=== PATIENT | female | born 1945 | race Caucasian/White ===

== ENCOUNTER 2017-03-14 10:18 | Day surgery (SDC) | payer OTHER ==
[2017-03-14] MEDS ORDERED: NS 1/2 1000 ML IV 500 ML IV ONE (10:30)
[2017-03-14] MEDS ORDERED: TETRACAINE 0.5% OPHTH 1 DOSE AFFEYE ONE ×4 (10:30→15:08)
[2017-03-14] MEDS ORDERED: VIGAMOX 0.5% OPHTH 1 DOSE AFFEYE ONE ×3 (10:31→10:41)
[2017-03-14] MEDS ORDERED: NS 500 ML IV 500 ML IV ONE (10:32)
[2017-03-14] MEDS ORDERED: PROLENSA OPHTH 1 DOSE AFFEYE ONE (10:42)
[2017-03-14] MEDS ORDERED: ALPHAGAN-P OPHTH 1 DOSE AFFEYE ONE (10:43)
[2017-03-14] MEDS ORDERED: CYCLOGYL 1% OPHTH 1 DOSE OP ONE ×3 (10:44→10:46)
[2017-03-14] MEDS ORDERED: MYDRIACIL OPHTH 1 DOSE AFFEYE ONE ×3 (10:44→10:46)
[2017-03-14] MEDS ORDERED: AK-DILATE 2.5% OPHTH 1 DOSE OP ONE ×3 (10:44→10:46)
[2017-03-14] MEDS ORDERED: BETADINE OPHTH SOLN 5% EACHEYE ONE (14:58)
[2017-03-14] MEDS ORDERED: XYLOCAINE-MPF 1% IJ ONE ×2 (14:59→15:08)
[2017-03-14] MEDS ORDERED: ADRENALINE CHL INJ IJ ONE ×2 (14:59→15:08)
[2017-03-14] MEDS ORDERED: DUOVISC IO ONE ×2 (15:00→15:08)
[2017-03-14] MEDS ORDERED: VIGAMOX 0.5% AFFEYE ONE ×3 (15:00→15:25)
[2017-03-14] MEDS ORDERED: BSS OPHTH (PLAIN) 500 ML with VANCOMYCIN HCL 500 MG VIAL 25 MG, ADRENALINE CHL INJ 1 MG IR ONE ×3 (15:00)
[2017-03-14] MEDS ORDERED: VERSED ONE (15:53)
[2017-03-14] MEDS ORDERED: DIPRIVAN VIAL ONE (15:53)
[2017-03-14 15:57] VITALS: BP 151/71
== END 2017-03-14 15:50 | disposition home or self-care (01) ==
LOC: SURG1 10:18
PROVIDERS: ATTEND Ophthalmology
PROC: 08DK3ZZ Extraction of Left Lens, Percutaneous Approach (ICD-10-PCS; principal; 2017-03-14 22:45)
PROC: 08RK3JZ Replacement of Left Lens with Synthetic Substitute, Percutaneous Approach (ICD-10-PCS; principal; 2017-03-14 22:45)
DX: H25.12 Age-related nuclear cataract, left eye (principal); H25.012 Cortical age-related cataract, left eye; H25.042 Posterior subcapsular polar age-related cataract, left eye
CPT/HCPCS: 99100; A4217; J0170; J2250; J3370; J3490

== ENCOUNTER 2022-05-19 12:03 | Observation (INO) ==
[2022-05-19] MEDS ORDERED: TUSSIONEX PENNKINETIC SUSP PO PRN (13:44)
[2022-05-19] MEDS ORDERED: REMDESIVIR 200 MG in NS 250 ML IV 250 ML IV ONE (13:48)
[2022-05-19 14:02] LABS: ABG ALLEN TEST POS; ABG BASE EXCESS 2.6 mmol/L (-2.0-2.0); ABG HCO3 26.2 mmol/L (22-26)
[2022-05-19 14:31] VITALS: BMI 26.3
[2022-05-19 14:34] LABS: BASOPHILS % (AUTO) 0.6 % (0.2-1.0); EOSINOPHILS # (AUTO) 0.1 x10^3/uL (0.0-0.2); EOSINOPHILS % (AUTO) 1.5 % (0.9-2.9); HEMATOCRIT 46.2 % (36.0-47.0); HEMOGLOBIN 14.9 g/dL (12.0-16.0); LYMPHOCYTES # (AUTO) 0.4 X10^3/uL (1.3-2.9); LYMPHOCYTES % (AUTO) 4.5 % (21.0-51.0); MEAN CORPUSCULAR HEMOGLOBIN 25.1 pg (27.0-34.0); MEAN CORPUSCULAR HGB CONC 32.2 g/dL (33.0-35.0); MONOCYTES # (AUTO) 0.4 x10^3/uL (0.3-0.8); MONOCYTES % (AUTO) 4.4 % (0.0-13.0); NEUTROPHILS # (AUTO) 7.9 x10^3/uL (2.2-4.8); RED BLOOD COUNT 5.93 X10^6/uL (3.5-5.4); RED CELL DISTRIBUTION WIDTH 20.4 % (11.6-16.5); WHITE BLOOD COUNT 8.9 X10^3/uL (3.6-10.0)
[2022-05-19] MEDS: XOPENEX 1.25 MG/3 ML NEBULE NEB SCH ×3 (14:36→20:55)
[2022-05-19] MEDS: PULMICORT NEB TX 0.5 MG NEB SCH ×2 (14:36→20:55)
[2022-05-19] MEDS ORDERED: NS 1/2 1,000 ML IV 1,000 ML IV ONE (14:39)
[2022-05-19] MEDS ORDERED: TYLENOL 325 MG TAB PO PRN (14:46)
[2022-05-19 14:48] LABS: ALANINE AMINOTRANSFERASE 21 Units/L (12-78); ALBUMIN 3.8 g/dL (3.4-5.0); ALKALINE PHOSPHATASE 86 Units/L (46-116); ASPARTATE AMINO TRANSFERASE 23 Units/L (15-37); BLOOD UREA NITROGEN 14 mg/dL (7-18); CALCIUM 8.2 mg/dL (8.5-10.1); CARBON DIOXIDE 28.6 mmol/L (21-32); CHLORIDE 101 mmol/L (98-107); CREATINE KINASE 72 Units/L (26-192); CREATININE 0.96 mg/dL (0.55-1.02); SODIUM 136 mmol/L (136-145); TOTAL PROTEIN 7.7 g/dL (6.4-8.2); eGFR NON BLACK RACES > 60 (>60)
[2022-05-19] MEDS ORDERED: TYLENOL 325 MG TAB PO ONE (14:50)
[2022-05-19] MEDS: LEVAQUIN PREMIX IV 500 MG 500 MG/100 ML BAG IV SCH (14:52)
[2022-05-19] MEDS: NS 1/2 1,000 ML IV 1,000 ML IV SCH (14:53)
[2022-05-19] MEDS: SOLU-Medrol 40 MG VIAL IVP SCH ×2 (14:53→21:00)
[2022-05-19] MEDS: ROBITUSSIN DM PO SCH ×3 (14:55→20:21)
[2022-05-19] MEDS: PROTONIX TAB 40 MG PO SCH ×2 (14:55→20:24)
[2022-05-19] MEDS: VSL#3 PO SCH (14:56)
[2022-05-19] MEDS: PEPCID TAB 20 MG PO SCH ×2 (14:56→20:25)
[2022-05-19 15:43] LABS: PLATELET MORPHOLOGY COMMENT NORMAL (NORMAL)
[2022-05-19 15:44] LABS: ANISOCYTOSIS 1+; HYPOCHROMASIA SLIGHT; MICROCYTOSIS SLIGHT
[2022-05-19] MEDS: LOVENOX INJ 30 MG SYR SC SCH (20:22)
[2022-05-19] MEDS: VITAMIN C PO SCH (20:24)
[2022-05-19] MEDS ORDERED: RESTORIL CAP 15 MG PO PRN (22:15)
--- NOTE | 2022-05-20 02:51 | RAD ---
PROCEDURE: Chest X-ray 1 View .HISTORY: Dyspnea and COVID-19.TECHNIQUE: AP view .COMPARISON: None .TECHNICAL QUALITY: Satisfactory .FINDINGS:Normal size heart .Mediastinum and hilar regions show no masses or lymphadenopathy .Normal central vascularity .No pulmonary consolidation, masses, pleural fluid, or pneumothorax. Probable chest wall shadow projected over left lung base laterally.No acute bony abnormality .IMPRESSION:No active cardiopulmonary disease .Electronically signed by: Sherman Jordan (May 20, 2022 02:49:43)
[2022-05-20] MEDS: NS 1/2 1,000 ML IV 1,000 ML IV SCH ×3 (04:05→18:59)
[2022-05-20] MEDS ORDERED: NS 1/2 1,000 ML IV 1,000 ML IV ONE (05:11)
[2022-05-20] MEDS: SOLU-Medrol 40 MG VIAL IVP SCH ×3 (05:24→21:00)
[2022-05-20 05:46] LABS: BASOPHILS % (AUTO) 0.1 % (0.2-1.0); HEMATOCRIT 42.8 % (36.0-47.0); HEMOGLOBIN 13.9 g/dL (12.0-16.0); LYMPHOCYTES # (AUTO) 0.5 X10^3/uL (1.3-2.9); LYMPHOCYTES % (AUTO) 5.2 % (21.0-51.0); MEAN CORPUSCULAR HEMOGLOBIN 25.3 pg (27.0-34.0); MEAN CORPUSCULAR HGB CONC 32.5 g/dL (33.0-35.0); MEAN CORPUSCULAR VOLUME 77.6 fL (80.0-100.0); MEAN PLATELET VOLUME 8.2 fL (7.4-11.0); MONOCYTES # (AUTO) 0.1 x10^3/uL (0.3-0.8); MONOCYTES % (AUTO) 0.8 % (0.0-13.0); NEUTROPHILS # (AUTO) 8.5 x10^3/uL (2.2-4.8); NEUTROPHILS % (AUTO) 93.9 % (42.0-75.0); RED BLOOD COUNT 5.52 X10^6/uL (3.5-5.4); RED CELL DISTRIBUTION WIDTH 20.5 % (11.6-16.5)
--- NOTE | 2022-05-20 05:56 | RAD ---
PROCEDURE: Chest X-ray 1 View .HISTORY: COVID PNEUMONIA .TECHNIQUE: AP portable done at 4:47 a.m..COMPARISON: 05/19/2022.TECHNICAL QUALITY: Satisfactory .FINDINGS:Normal size heart .Mediastinum and hilar regions show no masses or lymphadenopathy .Normal central vascularity .No pulmonary consolidation, masses, pleural fluid, or pneumothorax .No acute bony abnormality .IMPRESSION:No active cardiopulmonary disease .Electronically signed by: Sherman Jordan (May 20, 2022 05:55:16)
[2022-05-20 06:02] LABS: ALANINE AMINOTRANSFERASE 23 Units/L (12-78); ALBUMIN 3.4 g/dL (3.4-5.0); ALKALINE PHOSPHATASE 83 Units/L (46-116); ASPARTATE AMINO TRANSFERASE 23 Units/L (15-37); BLOOD UREA NITROGEN 13 mg/dL (7-18); CALCIUM 8.3 mg/dL (8.5-10.1); CARBON DIOXIDE 22.1 mmol/L (21-32); CHLORIDE 103 mmol/L (98-107); COR NA(FOR HYPERGLY) 141 mmol/L (136-145); CREATININE 1.03 mg/dL (0.55-1.02); SODIUM 139 mmol/L (136-145); TOTAL PROTEIN 7.3 g/dL (6.4-8.2); eGFR NON BLACK RACES 56 (>60)
[2022-05-20 06:06] LABS: ANISOCYTOSIS 1+; BAND NEUTROPHILS % 5 % (0-10); HYPOCHROMASIA SLIGHT; MICROCYTOSIS SLIGHT; PLATELET MORPHOLOGY COMMENT NORMAL (NORMAL)
[2022-05-20] MEDS ORDERED: LASIX IVP ONE (08:31)
[2022-05-20] MEDS: LEVAQUIN PREMIX IV 500 MG 500 MG/100 ML BAG IV SCH (08:33)
[2022-05-20] MEDS: ROBITUSSIN DM PO SCH ×4 (08:34→20:54)
[2022-05-20] MEDS: PROTONIX TAB 40 MG PO SCH ×2 (08:34→20:50)
[2022-05-20] MEDS: VITAMIN C PO SCH ×2 (08:34→20:49)
[2022-05-20] MEDS: PEPCID TAB 20 MG PO SCH ×2 (08:34→20:50)
[2022-05-20] MEDS: VSL#3 PO SCH (08:34)
[2022-05-20] MEDS: REMDESIVIR 100 MG in NS 250 ML IV 250 ML IV SCH (08:35)
[2022-05-20] MEDS: LOVENOX INJ 30 MG SYR SC SCH ×2 (08:35→20:55)
[2022-05-20] MEDS: PULMICORT NEB TX 0.5 MG NEB SCH ×2 (08:41→21:17)
[2022-05-20] MEDS: XOPENEX 1.25 MG/3 ML NEBULE NEB SCH ×4 (08:41→21:17)
[2022-05-20] MEDS ORDERED: XANAX PO PRN (08:52)
--- NOTE | 2022-05-20 11:28 | DR.UPDATE ---
H&P Update History and Physical Update: History and Physical reviewed and patient examined. Changes noted: Yes with the following: PATIENT PRESENTED TO THE OFFICE WITH COMPLAINTS OF SORE THROAT, GENERALIZED BODY ACHES, FEVER, SHORTNESS OF BREATH, FATIGUE, NON-PRODUCTIVE COUGH, NASAL DRAINAGE, AND HEADACHE. SYMPTOMS STARTED 2-3 DAYS PRIOR. WE TESTED HER FOR COVID-19, WHICH WAS POSITIVE. HER OXYGEN SATURATION WERE 90-92% ON ROOM AIR. DECISION WAS MADE TO ADMIT PATIENT TO HOSPITAL FOR FURTHER EVALUATION AND TREATMENT OF COVID-19, ACUTE BRONCHITIS, HYPOXIA. ON ARRIVAL, VITALS WERE 99.3-116-20-97%-155/70. LABS WERE OBTAINED. WBC 8.9, RBC 5.93, HGB 14.9, HCT 46.2, SODIUM 136, POTASSIUM 4.0, CHLORIDE 101, CARBON DIOXIDE 28.6, BUN 14, CREATININE 0.96, GLUCOSE 101, CALCIUM 8.2, AST 23, ALT 21, ALK PHOS 86, CREATINE KINASE 72, TROPONIN 5.2, CRP 52.30, BNP 55.3, TOTAL PROTEIN 7.7, ALBUMIN 3.8. ABG WAS OBTAINED. PH 7.470, PC02 36, P02 57, HC03 26.2, 02 SAT 91, BASE EXCESS 2.6, A-A GRADIENT 48, FI02 21.0. BLOOD AND SPUTUM CULTURES WERE SET UP. A CHEST XRAY WAS OBTAINED AND REVEALED: Normal size heart. Mediastinum and hilar regions show no masses or lymphadenopathy. Normal central vascularity. No pulmonary consolidation, masses, pleural fluid, or pneumothorax. Probable chest wall shadow projected over left lung base laterally. No acute bony abnormality. EKG REVEALED: SINUS TACHYCARDIA WITH HR 118. SHE WAS STARTED ON NORMAL SALINE AT 75 ML/HR, REMDESIVIR 200MG IV X 1 DOSE THEN 100MG IV DAILY, LEVAQUIN 500MG IV DAILY, PULMICORT NEBS BID, XOPENEX NEBS QID, TUSSIONEX 5ML Q12H PRN, ROBITUSSIN DM 10ML PO QID, LOVENOX 30MG SC BID, SOLU-MEDROL 80MG IV Q8H, PROTONIX 40MG PO BID, PEPCID 20MG PO BID, PRIOBIOTICS, VITAMIN C 1000MG PO BID. HER HOME MEDICATIONS OF ALPRAZOLAM AND AMBIEN WERE ALSO RESUMED. OTHERWISE, WE PLAN TO FOLLOW-UP WITH AM LABS AND CHEST XRAY AND CONTINUE TO MONITOR. TIME SPENT ON CLINICAL ASSESSMENT, REVIWING LABS AND IMAGING, DECISION MAKING, AND DOCUMENTATION GREATER THAN 75 MINUTES. H&P Reviewed: Yes Patient was examined?: Yes
[2022-05-20] MEDS ORDERED: AMBIEN PO SCH (21:00)
[2022-05-21] MEDS: SOLU-Medrol 40 MG VIAL IVP SCH (05:41)
--- NOTE | 2022-05-21 05:59 | RAD ---
HISTORYSOB HX: HTN, BREAST CANCER SX: LT MASTECTOMY, HYSTERECTOMYSTUDYCHEST, 1 [id number]/2022FINDINGSThe trachea is midline. The cardiac silhouette is unremarkable. The lungs are clear without focal infiltrate or effusion. Mild subsegmental atelectasis within the left lung base. The bony thorax is unremarkable.IMPRESSIONMild left basilar subsegmental atelectasis..Electronically signed by: Eagle Witt (May 21, 2022 05:58:12)
[2022-05-21 06:39] LABS: BASOPHILS % (AUTO) 0 % (0.2-1.0); HEMATOCRIT 43.9 % (36.0-47.0); HEMOGLOBIN 14.4 g/dL (12.0-16.0); LYMPHOCYTES # (AUTO) 0.5 X10^3/uL (1.3-2.9); LYMPHOCYTES % (AUTO) 2.4 % (21.0-51.0); MEAN CORPUSCULAR HEMOGLOBIN 25.5 pg (27.0-34.0); MEAN CORPUSCULAR HGB CONC 32.8 g/dL (33.0-35.0); MEAN CORPUSCULAR VOLUME 77.8 fL (80.0-100.0); MEAN PLATELET VOLUME 8.1 fL (7.4-11.0); MONOCYTES # (AUTO) 0.6 x10^3/uL (0.3-0.8); MONOCYTES % (AUTO) 3.1 % (0.0-13.0); NEUTROPHILS # (AUTO) 18.4 x10^3/uL (2.2-4.8); NEUTROPHILS % (AUTO) 94.5 % (42.0-75.0); RED BLOOD COUNT 5.64 X10^6/uL (3.5-5.4); RED CELL DISTRIBUTION WIDTH 20.4 % (11.6-16.5); WHITE BLOOD COUNT 19.5 X10^3/uL (3.6-10.0)
[2022-05-21 06:49] LABS: ALANINE AMINOTRANSFERASE 23 Units/L (12-78); ALBUMIN 3.4 g/dL (3.4-5.0); ALKALINE PHOSPHATASE 114 Units/L (46-116); ASPARTATE AMINO TRANSFERASE 27 Units/L (15-37); BLOOD UREA NITROGEN 24 mg/dL (7-18); CALCIUM 8.6 mg/dL (8.5-10.1); CARBON DIOXIDE 26.3 mmol/L (21-32); CHLORIDE 105 mmol/L (98-107); COR NA(FOR HYPERGLY) 142 mmol/L (136-145); CREATININE 1.09 mg/dL (0.55-1.02); SODIUM 142 mmol/L (136-145); TOTAL PROTEIN 7.2 g/dL (6.4-8.2); eGFR NON BLACK RACES 52 (>60)
[2022-05-21 07:09] LABS: ANISOCYTOSIS 1+; BAND NEUTROPHILS % 7 % (0-10); HYPOCHROMASIA SLIGHT; PLATELET MORPHOLOGY COMMENT NORMAL (NORMAL)
[2022-05-21] MEDS: LOVENOX INJ 30 MG SYR SC SCH (08:11)
[2022-05-21] MEDS: PEPCID TAB 20 MG PO SCH (08:13)
[2022-05-21] MEDS: VITAMIN C PO SCH (08:14)
[2022-05-21] MEDS: VSL#3 PO SCH (08:14)
[2022-05-21] MEDS: ROBITUSSIN DM PO SCH (08:14)
[2022-05-21] MEDS: PROTONIX TAB 40 MG PO SCH (08:14)
[2022-05-21] MEDS: REMDESIVIR 100 MG in NS 250 ML IV 250 ML IV SCH (08:15)
[2022-05-21] MEDS: LEVAQUIN PREMIX IV 500 MG 500 MG/100 ML BAG IV SCH (08:15)
[2022-05-21] MEDS: NS 1/2 1,000 ML IV 1,000 ML IV SCH (08:15)
[2022-05-21 09:16] VITALS: BP 118/56
== END 2022-05-21 10:00 | disposition home or self-care (01) ==
LOC: MED/SURG
PROVIDERS: ADMIT Internal Medicine; ATTEND Internal Medicine
DX: J12.82 Pneumonia due to coronavirus disease 2019; R94.31 Abnormal electrocardiogram [ECG] [EKG]; R79.82 Elevated C-reactive protein (CRP); R51.9 Headache, unspecified; R06.02 Shortness of breath; U07.1 COVID-19; R79.1 Abnormal coagulation profile